=== PATIENT | female | born 1985 | race Caucasian/White ===

== ENCOUNTER 2016-12-05 06:26 | Emergency (ER) | payer MEDICAID ==
[~2016-12-05] VITALS: Ht 172.7 cm; Wt 82.6 kg
[2016-12-05 06:27] VITALS: BP 114/75
--- NOTE | 2016-12-05 06:55 | NUR ---
Patient to bed 04.
--- NOTE | 2016-12-05 07:01 | NUR ---
Dr. Banks evaluating patient at bedside.
--- NOTE | 2016-12-05 07:03 | NUR ---
31Y/F PATIENT PRESENTS TO ED WITH C/O GENERALIZED RASH X 4 DAYS. PT STATES RASH X 4 DAYS, FEVER YESTERDAY, WAS SEEN YESTERDAY, RASH STILL . DENIES N/V/D; SKIN IS PINK/WARM/DRY; AAOX4 WITH EVEN AND STEADY GAIT; LUNGS CLEAR BL; HR EVEN AND REGULAR; PT DENIES ANY FEVER, CP, SOB, OR COUGH AT THIS TIME; PATIENT STATES PAIN OF 9/10 AT THIS TIME; VSS; PATIENT POSITIONED FOR COMFORT; HOB ELEVATED; BEDRAILS UP X2; BED DOWN. ER MD MADE AWARE OF PT STATUS.
[2016-12-05] MEDS ORDERED: NACL 0.9% 1,000 ML IV SCH (07:17)
--- NOTE | 2016-12-05 07:19 | NUR ---
Patient transferred to bed 5 for further care. RN evaluating patient at bedside.
[2016-12-05] MEDS ORDERED: FAMOTIDINE 20 MG/2 ML VIAL IVP ONE (07:20)
[2016-12-05] MEDS ORDERED: diphenhydrAMINE 50 MG/ML VIAL IVP ONE (07:20)
[2016-12-05] MEDS ORDERED: LORazepam 2 MG/ML VIAL IVP ONE (07:20)
[2016-12-05] MEDS ORDERED: diphenhydrAMINE 50 MG/ML VIAL ONE (07:24)
[2016-12-05] MEDS ORDERED: FAMOTIDINE 20 MG/2 ML VIAL ONE (07:24)
[2016-12-05] MEDS ORDERED: LORazepam 2 MG/ML VIAL ONE (07:26)
--- NOTE | 2016-12-05 08:22 | NUR ---
AAO PT RESTING COMFORTABLY ON BED, NO C/O PAIN, ON HER PHONE NO DISTRESS NOTED AT THIS TIME, WILL CONTINUE TO MONITOR
[2016-12-05 08:52] VITALS: BP 121/49
--- NOTE | 2016-12-05 08:52 | NUR ---
Patient discharged with v/s stable. Written and verbal after care instructions given and explained. Patient alert, oriented and verbalized understanding of instructions. Ambulatory with steady gait. All questions addressed prior to discharge. ID band removed. Patient advised to follow up with PMD. Rx of ATARX, RANITIDINE given. Patient educated on indication of medication including possible reaction and side effects. Opportunity to ask questions provided and answered.
== END 2016-12-05 08:52 | disposition home or self-care (01) ==
LOC: MED 06:26
DX: T78.40XA Allergy, unspecified, initial encounter (principal); L50.9 Urticaria, unspecified; E11.9 Type 2 diabetes mellitus without complications; Z88.0 Allergy status to penicillin; X58.XXXA Exposure to other specified factors, initial encounter
CPT/HCPCS: 96361; 96374; 96375; 99284; J1200; J2060; J3490; J7030

== ENCOUNTER 2017-02-06 09:34 | Emergency (ER) | payer MEDICAID ==
[~2017-02-06] VITALS: Ht 170.2 cm; Wt 84.1 kg
[2017-02-06 09:37] VITALS: BP 107/72
--- NOTE | 2017-02-06 09:43 | NUR ---
PT AMBULATED TO BED 5
--- NOTE | 2017-02-06 09:44 | NUR ---
32F BIB FAMILY C/O POSTERIOR NECK PAIN S/P TC X 2 DAYS AGO; PT STATES NO LOC AT TIME OF INCIDENT. HX: ANEMIA. DENIES N/V/D; SKIN IS PINK/WARM/DRY; AAOX4 WITH EVEN AND STEADY GAIT; LUNGS CLEAR BL; HR EVEN AND REGULAR; PATIENT STATES PAIN OF 6/10 AT THIS TIME; PATIENT POSITIONED FOR COMFORT; HOB ELEVATED; BEDRAILS UP X2; BED DOWN. ER MD MADE AWARE OF PT STATUS.
--- NOTE | 2017-02-06 09:52 | NUR ---
Patient being evaluated by DR WILEY at bedside.
[2017-02-06] MEDS ORDERED: KETOROLAC 30 MG/ML VIAL IM ONE (09:55)
--- NOTE | 2017-02-06 10:02 | NUR ---
Patient taken to XRAY via wheelchair by tech.
--- NOTE | 2017-02-06 10:03 | NUR ---
PT TAKEN TO X RAY VIA W/C,ACCOMPANIED BY FABRICATING MACHINE OPERATOR.
--- NOTE | 2017-02-06 10:31 | NUR ---
PT BACK FROM X RAY.PT DENIES PAIN AT THIS TIME.
--- NOTE | 2017-02-06 11:08 | NUR ---
FAMILY AT BEDSIDE. Patient appears to be resting comfortably in bed. Vital Signs within normal limits. Respirations even and unlabored.WILL CONTINUE TO MONITOR.
[2017-02-06 11:24] VITALS: BP 108/61
== END 2017-02-06 11:23 | disposition home or self-care (01) ==
LOC: MED 09:34
DX: M54.2 Cervicalgia (principal); Z88.6 Allergy status to analgesic agent; Z88.0 Allergy status to penicillin; Z86.2 Personal history of diseases of the blood and blood-forming organs and certain disorders involving the immune mechanism; V43.52XA Car driver injured in collision with other type car in traffic accident, initial encounter; Y93.I9 Activity, other involving external motion; Y92.488 Other paved roadways as the place of occurrence of the external cause; Y99.8 Other external cause status
CPT/HCPCS: 72050; 96372; 99284; J1885

== ENCOUNTER 2017-12-15 03:38 | Emergency (ER) | payer MEDICAID ==
[~2017-12-15] VITALS: Ht 172.7 cm; Wt 81.6 kg
[2017-12-15 03:43] VITALS: BP 135/69
[2017-12-15 04:24] VITALS: BP 135/69
== END 2017-12-15 04:24 | disposition home or self-care (01) ==
LOC: MED 03:38
DX: H66.91 Otitis media, unspecified, right ear (principal); Z88.0 Allergy status to penicillin; Z88.8 Allergy status to other drugs, medicaments and biological substances
CPT/HCPCS: 99283

== ENCOUNTER 2018-01-21 07:00 | Emergency (ER) | payer MEDICAID ==
[~2018-01-21] VITALS: Ht 170.2 cm; Wt 81.6 kg
[2018-01-21 07:10] VITALS: BP 104/51
--- NOTE | 2018-01-21 07:18 | NUR ---
pt ambulates to bed 11 w/ steady gait. report given to coretta hutchins
--- NOTE | 2018-01-21 07:25 | NUR ---
PATIENT PRESENTS TO ED WITH C/O COUGH UP BLOOD ONCE YESTERDAY, DENIES SOB, DENIES PAIN, STATED " FEELING SOMETHING IN MY THOAT." PCP REFFERAL TO ER . VSS; PATIENT POSITIONED FOR COMFORT; HOB ELEVATED; BEDRAILS UP X2; BED DOWN. ER MD MADE AWARE OF PT STATUS.
--- NOTE | 2018-01-21 07:38 | NUR ---
X-RAY AT BEDSIDE.
--- NOTE | 2018-01-21 07:46 | NUR ---
Patient being evaluated by physician at bedside.
[2018-01-21 08:20] VITALS: BP 102/55
== END 2018-01-21 08:20 | disposition home or self-care (01) ==
LOC: MED 07:00
DX: J02.9 Acute pharyngitis, unspecified (principal); Z88.6 Allergy status to analgesic agent; Z88.0 Allergy status to penicillin; F17.290 Nicotine dependence, other tobacco product, uncomplicated
CPT/HCPCS: 71045; 99283

== ENCOUNTER 2018-08-09 03:35 | Emergency (ER) | payer MEDICAID ==
[~2018-08-09] VITALS: Ht 172.7 cm; Wt 84.5 kg
[2018-08-09 03:41] VITALS: BP 136/76
--- NOTE | 2018-08-09 03:45 | NUR ---
PT AMBULATED TO BED 4 WITH VSS.
--- NOTE | 2018-08-09 03:45 | NUR ---
PT PRESENTS TO ED WITH LEFT LOWER JAW TOOTH PAIN X3 DAYS. 8/10 PAIN. POSSIBLE MOLAR EMERGING THROUGH GUMS IN DISTAL LEFT LOWER JAW. AFEBRILE. A&OX4. VSS. ER MD AWARE. CONTINUE TO MONITOR.
[2018-08-09] MEDS ORDERED: VENL150C1 PO (03:47)
[2018-08-09] MEDS ORDERED: CLINDAMYCIN 150 MG CAP PO ONE (04:00)
[2018-08-09 04:06] VITALS: BP 136/76
--- NOTE | 2018-08-09 04:06 | NUR ---
Patient discharged with v/s stable. Written and verbal after care instructions given and explained. Patient alert, oriented and verbalized understanding of instructions. Ambulatory with steady gait. All questions addressed prior to discharge. ID band removed. Patient advised to follow up with PMD. Rx of Clindamycin and Tramadol given. Patient educated on indication of medication including possible reaction and side effects. Opportunity to ask questions provided and answered.
--- NOTE | 2018-08-09 04:21 | NUR ---
INSTRUCTED PT TO REMAIN IN BED 4 FOR MEDICATION REEVALUATION. NADR. 09/07 PAIN. VSS.
== END 2018-08-09 04:06 | disposition home or self-care (01) ==
LOC: MED 03:35
DX: K04.7 Periapical abscess without sinus (principal); R03.0 Elevated blood-pressure reading, without diagnosis of hypertension; Z88.0 Allergy status to penicillin; Z88.6 Allergy status to analgesic agent; Z79.899 Other long term (current) drug therapy
CPT/HCPCS: 99283

== ENCOUNTER 2019-01-14 04:29 | Emergency (ER) | payer MEDICAID ==
[~2019-01-14] VITALS: Ht 170.2 cm; Wt 77.1 kg
[~2019-01-14 04:29] MED LIST: VENL150C1 PO
[2019-01-14 04:34] VITALS: BP 110/67
--- NOTE | 2019-01-14 04:34 | NUR ---
TO BED # 12 AMBULATORY
[2019-01-14 04:40] VITALS: BP 110/67
--- NOTE | 2019-01-14 04:40 | NUR ---
34 Y/O F BIB SELF WITH C/O HESITENCY WITH VOIDING X5 DAYS. AAOX4. DENIES DYSURIA, HEMATURIA, AND FLANK PAIN. LMP 01/12/19. PT DENIES PAIN BUT HAS "UNCOMFORTABLE FEELING, LIKE I HAVE TO PEE THEN I PEE BUT ITS NOT DONE." PT HAS ONE SEXUAL PARTNER AND USES [employer] FOR PROTECTED SEX. BEDRAILX1 UP. BED IN LOWEST POSITION. WILL CONTINUE TO MONITOR.
[2019-01-14 04:55] LABS: APPEARANCE,URINE CLEAR (CLEAR); BILIRUBIN,URINE NEGATIVE (NEGATIVE); BLOOD, URINE 1+ (NEGATIVE); COLOR,URINE YELLOW (YELLOW); LEUKOCYTE ESTERASE ,URINE NEGATIVE (NEGATIVE); NITRITE, URINE NEGATIVE (NEGATIVE); UGLUCOSE NEGATIVE (NEGATIVE)
[2019-01-14 05:04] LABS: RBC,URINE 0-5 /HPF (0-5); WBC,URINE 0-5 /HPF (0-5)
--- NOTE | 2019-01-14 05:23 | NUR ---
DR KOHLI AT BEDSIDE EVALUATING PT
== END 2019-01-14 05:31 | disposition home or self-care (01) ==
LOC: MED 04:29
DX: N39.0 Urinary tract infection, site not specified (principal); Z86.2 Personal history of diseases of the blood and blood-forming organs and certain disorders involving the immune mechanism; Z79.899 Other long term (current) drug therapy; Z88.6 Allergy status to analgesic agent; Z88.0 Allergy status to penicillin
CPT/HCPCS: 81001; 81002; 81025; 87086; 99283

== ENCOUNTER 2019-06-15 19:00 | Emergency (ER) | payer MEDICAID ==
[~2019-06-15] VITALS: Ht 170.2 cm; Wt 77.6 kg
[2019-06-15 19:03] VITALS: BP 115/75
--- NOTE | 2019-06-15 19:08 | NUR ---
ASSISTED PT TO WAIT IN THE LOBBY. URINE CUP PROVIDED.
--- NOTE | 2019-06-15 19:39 | NUR ---
PT MOVED TO ER BED 2
--- NOTE | 2019-06-15 20:02 | NUR ---
Dr. Nunez examining patient.
--- NOTE | 2019-06-15 20:18 | NUR ---
PT ASSESSMENT COMPLETE. PT SEATED UPRIGHT ON BED. WILL CONTINUE TO MONITOR.
[2019-06-15 21:06] VITALS: BP 114/54
--- NOTE | 2019-06-15 21:06 | NUR ---
Patient discharged with v/s stable. Written and verbal after care instructions given and explained. Patient alert, oriented and verbalized understanding of instructions. Ambulatory with steady gait. All questions addressed prior to discharge. ID band removed. Patient advised to follow up with PMD. Rx of PYRIDUM AND CIPRO given. Patient educated on indication of medication including possible reaction and side effects. Opportunity to ask questions provided and answered.
== END 2019-06-15 21:06 | disposition home or self-care (01) ==
LOC: MED 19:00
DX: N39.0 Urinary tract infection, site not specified (principal); R30.0 Dysuria; Z88.0 Allergy status to penicillin; Z88.6 Allergy status to analgesic agent
CPT/HCPCS: 81002; 81025; 99283

== ENCOUNTER 2021-09-01 05:50 | Emergency (ER) | payer MEDICAID ==
[~2021-09-01] VITALS: Ht 172.7 cm; Wt 93.9 kg
[2021-09-01 05:56] VITALS: BP 108/54
[2021-09-01] MEDS ORDERED: cefTRIAXone 1,000 MG in LIDOCAINE MPF 1% 2.1 ML IM ONE (06:05)
[2021-09-01] MEDS ORDERED: CEPH-588 PO (06:05)
[2021-09-01] MEDS ORDERED: LIDOCAINE MPF 1% 5 ML ONE (06:07)
[2021-09-01] MEDS ORDERED: cefTRIAXone 1,000 MG VIAL ONE (06:07)
[2021-09-01 06:13] VITALS: BP 108/54
== END 2021-09-01 06:14 | disposition home or self-care (01) ==
LOC: MED 05:50
DX: L03.113 Cellulitis of right upper limb (principal); Z88.0 Allergy status to penicillin; Z88.6 Allergy status to analgesic agent; Z79.899 Other long term (current) drug therapy
CPT/HCPCS: 96372; 99283; J0696; J2001